=== PATIENT | male | born 1975 | race Caucasian/White ===

== ENCOUNTER 2017-02-27 16:50 | Inpatient (IN) | payer OTHER ==
[~2017-02-27] VITALS: Ht 182.9 cm; Wt 88.9 kg
--- NOTE | ~2017-02-27 | HC ---
[facility] Nataliia Nu[address]ez [place] [address] CONSULTATION Name: CHRISTINA BLAS Fabián Room #: 461-P [facility] IN M.R.#: [id number] Admission: 02/27/17 Attend Phys: Eliezer Araya DO Discharge: 03/05/17 Date of : 71 Report #: [id number] THIS REPORT FOR: //name// CC: [facility] physician/PCP Eliezer Araya PULMONARY CONSULTATION REFERRAL PHYSICIAN: Dr. Ochoa. REASON FOR REFERRAL: COPD. HISTORY OF PRESENT ILLNESS: The patient is a 41-year-old white male who presents to Emergency Room with generalized pain. He was found to have severe metabolic alkalosis. With his history of COPD, a Pulmonary consultation was requested. The patient has a history of polysubstance abuse including methamphetamines, marijuana. He informed the Emergency Room staff that he has been on hospice care for heart failure. Currently, he is sleepy. Complains of generalized aches and pains. PAST MEDICAL HISTORY: Notable for tobacco abuse, apparent history of COPD, history of ADHD, apparent history of heart failure, on (?) hospice, gout. PAST SURGICAL HISTORY: Past history of bilateral forearm fracture, jaw fracture, wrist fracture. ALLERGIES: None noted. HOME MEDICATIONS: His stated home medications are Zyloprim, metolazone, Lasix, morphine, oral solutions, MS Contin, oxycodone, Neurontin, [place], Ativan. FAMILY HISTORY: Unknown. SOCIAL HISTORY: Tobacco abuse along with polysubstance abuse including methamphetamines, marijuana, continues to smoke about a pack a day. No history of alcohol abuse. REVIEW OF SYSTEMS: As mentioned above. It is limited as the patient is quite somnolent this morning. PHYSICAL EXAMINATION: GENERAL: He is arousable, in no apparent distress. VITAL SIGNS: Temperature is 98.3 degrees Fahrenheit, pulse is 84, respiratory rate is 20, blood pressure is 135/90 mmHg, saturation is 100%. [facility] [address] [place] [address] CONSULTATION Name: CHRISTINA BLAS Fabián Room #: 461-P [facility] IN [facility].#: [id number] Admission: 02/27/17 Attend Phys: Eliezer Araya DO Discharge: 03/05/17 Date of : 71 Report #: [id number] HEENT: Normocephalic, atraumatic. NECK: Supple, without any lymphadenopathy or thyromegaly. CHEST: Breath sounds are fair due to poor effort. Otherwise, no obvious rales or wheezes. CARDIOVASCULAR: Normal S1, S2. There are no murmurs or gallop. There is no JVD. There is no carotid bruit. Pulses are 2+/4+ bilaterally. ABDOMEN: Soft, nontender, no organomegaly or masses felt. GENITOURINARY: Deferred. RECTAL: Deferred. EXTREMITIES: There is no edema, cyanosis or clubbing. LABORATORY DATA: Chest x-ray is unremarkable. Lumbosacral x-rays were unremarkable. CT head was unremarkable. Sodium 129, potassium 1.9, chloride 80, CO2 is greater than 45, BUN is 68, creatinine is 1.5. WBC 14,300; hemoglobin is 15.9 without bandemia. Albumin 3.8. Arterial blood gas on admission revealed a pH 7.7, PCO2 42, pO2 48 on room air. Followup arterial blood gas revealed a pH of 7.58, PCO2 of 56, pO2 of 200. IMPRESSION: 1. Severe metabolic alkalosis with partial respiratory compensation. 2. Profound hypokalemia, hyponatremia, renal insufficiency. Azotemia is present. Volume contraction alkalosis is suspected with his history of diuretic use. 3. Renal insufficiency, unclear whether this is acute or chronic. 4. Apparent history of heart failure. Baseline echocardiogram will be helpful. 5. Acute hypoxic respiratory failure due to above processes. 6. Polysubstance abuse including marijuana, methamphetamine. 7. Chronic obstructive pulmonary disease with ongoing tobacco use. We will continue bronchodilators. I am not certain if corticosteroid is necessary at this time. In regards to the patient's severe metabolic alkalosis, it is felt to be related to volume depletion. I recommend volume repletion and correct electrolyte abnormalities. Deep venous thrombosis and gastrointestinal prophylaxis will be addressed. Obviously, the patient would need counseling regarding polysubstance abuse. Case management involvement will be helpful. Thank you for this consultation. <ELECTRONICALLY SIGNED> By: Shaheen Mancini MD 03/06/17 1233 1350 193 Shaheen Mancini MD /nt
--- NOTE | ~2017-02-27 | HC ---
[facility] Natali[address] Nu[address] [place] [address] CONSULTATION Name: CHRISTINA BLAS Fabián Room #: 461-P [facility] IN M.R.#: [id number] Admission: 02/27/17 Attend Phys: Eliezer Araya DO Discharge: Date of : 71 Report #: [id number] THIS REPORT FOR: //name// CC: [facility] physician/PCP Eliezer Araya INDICATION: Cardiomyopathy. HISTORY OF PRESENT ILLNESS: This is a 41-year-old gentleman who was admitted to the ER complaining of generalized weakness and multiple falls. The patient reports that he fell multiple times at home, unable to stand up. He also reports having loss of consciousness. Apparently, he was on hospice for the past one year, for history of severe cardiomyopathy. He is followed by Cardiology at [facility]. The patient was found to have severe hypokalemia, contraction alkalosis and acute renal insufficiency on admission. This is most likely attributed to diuretic use. There is some confusion regarding his medications. There is prescription for furosemide 160 mg twice a day as well as metolazone 5 mg daily. However, this is different from the medication list given from his medical records from 10/2016 at [facility]. The patient denies any history of chest pains, PND, palpitations or diaphoresis. He does have class 1 to 2 heart failure symptoms. PAST MEDICAL HISTORY: As reviewed from his records from [place] include cardiac catheterization in 06/2015 revealing normal coronary arteries and severe nonischemic cardiomyopathy. ICD implanted in 2015 at [place]. History of asthma, hypertension, GERD. MEDICATIONS: Please see the MAR. His medications from [place] include nicotine patch, digoxin 0.25 mg daily, Aldactone 12.5 mg daily, potassium, Bumex 3 mg twice a day and Zaroxolyn 20.5 mg daily. ALLERGIES: None. SOCIAL HISTORY: Apparently on hospice. History of drug use including methamphetamine, THC. Smokes 1 cigarette per day. FAMILY HISTORY: Unknown. REVIEW OF SYSTEMS: Only A full 10-point review of systems performed. Only the pertinent positives and negatives are described in the HPI. PHYSICAL EXAMINATION: VITAL SIGNS: Blood pressure is 100/60, heart rate is 75 beats per minute. GENERAL APPEARANCE: This is a well-developed, well-nourished male in no acute respiratory distress. [address] [address] CONSULTATION Name: CHRISTINA BLAS Fabián Room #: 461-P [facility] IN M.R.#: [id number] Admission: 02/27/17 Attend Phys: Eliezer Araya DO Discharge: Date of : 71 Report #: [id number] HEAD AND EYES: Normocephalic. Sclerae anicteric. ENT: Oral mucosa moist. NECK: Supple. LUNGS: Clear to auscultation. CARDIOVASCULAR: Regular rate and rhythm, S1, S2 positive. ABDOMEN: Soft, nontender. EXTREMITIES: No cyanosis. Trace ankle edema. ECG on admission was sinus rhythm with ventricular bigeminy which has resolved. LABORATORY VALUES: From today, potassium is 3.5, sodium is 132, BUN is 22, creatinine is 1.0. White count is 13.9, hemoglobin is 13.2. ASSESSMENT AND PLAN: 1. Cardiomyopathy/nonischemic, the echo from [facility] confirms a diagnosis of severe cardiomyopathy. At this time, he is not in any overt heart failure. He does have class 1 to 2 heart failure symptoms. The plan is to resume his medications including the diuretic therapy. He is not on a beta laly, the patient does not recall having any issues with any medications. We will start it at a low dose. 2. Electrolyte imbalance, secondary to diuretic use. We will resume combination of Aldactone and furosemide. This will be initiated once his potassium is stabilized. 3. Weakness/falls, probably combination of his underlying cardiomyopathy and dehydration. He seems to have improved with holding is medications and was given hydration. 4. Substance abuse, counseling is recommended. Thank you for allowing me to participate in the care of your patient. <ELECTRONICALLY SIGNED> By: Amadou Reeves MD 03/03/17 0804 03 0341 Amadou Reeves MD /nt
--- NOTE | ~2017-02-27 | EKG ---
[address] [address] ELECTROCARDIOGRAM REPORT Name: CHRISTINA BLAS Room #: 461-P ADM IN M.R.#: [id number] Admission: 02/27/17 Attend Phys: Eliezer Araya DO Discharge: Date of : 71 Report #: [id number] THIS REPORT FOR: //name// [facility] ED Test Date: 2017-02-27 Test Time: 18:08:25 Pat Name: CHRISTINA BLAS Department: Room: 461 Gender: M [employer] Installer: [id number] : 1975 Requested By: Juvenal Dhillon Order Number: [id number] MD: Amadou Reeves Measurements Intervals [place] Rate: 105 P: 52 PA: 196 QRS: 3 QRSD: 120 T: 252 QT: 376 QTc: 498 Interpretive Statements Sinus tachycardia Ventricular bigeminy Left atrial enlargement Nonspecific intraventricular conduction delay No previous ECG available for comparison Electronically Signed On 03-01-2017 12:37:27 CDT by Amadou Reeves [email or web address] <ELECTRONICALLY SIGNED> By: Amadou Reeves MD 03/01/17 1237 1808 1808 Amadou Reeves MD /RAMOS
--- NOTE | ~2017-02-27 | 2DMMODE ---
[place] [address] [facility] [place] [address] 2 D/M-MODE ECHOCARDIOGRAM Name: CHRISTINA BLAS Room #: 461-P [facility] IN .R.#: [id number] Admission: 02/27/17 Attend Phys: Eliezer Araya, Discharge: Date of : 71 Date of Service: 03/01/17 1543 Report #: [id number] THIS REPORT FOR: //name// APPROVED REPORT Study performed: 03/01/2017 10:48:04 EXAM: Comprehensive 2D, Doppler, and color-flow Echocardiogram Patient Location: Bedside Room #: 461 Status: on-call BSA: 2.11 HR: 90 bpm BP: 99/67 mmHg Rhythm: NSR Other Information Study Quality: Good Risk Factors: Cardiac Risk Factors: Smoking Indications COPD Sepsis Dyspnea Chest Pain 2D Dimensions IVSd: 11.41 (7-11mm) LVOT Diam: 22.21 (18-24mm) LVDd: 71.29 mm PWd: 11.86 (7-11mm) Ascending Ao: 35.97 (22-36mm) LVDs: 66.57 (25-40mm) Aortic Root: 33.81 mm LV Single Plane 4CH: 25.96 % LV Single Plane 2CH: 29.18 % Levine's LVEF: 27.57 % Biplane EF: 24.5 % Volumes Left Atrial Volume (Systole) Single Plane 4CH: 78.90 mL Single Plane 2CH: 68.86 mL LA ESV Index: 38.00 mL/m2 Aortic Valve AoV Peak Conrado.: 1.17 m/s [facility] [address] [place] [address] 2 D/M-MODE ECHOCARDIOGRAM Name: CHRISTINA LBAS Room #: 461-P [facility] IN .R.#: [id number] Admission: 02/27/17 Attend Phys: Eliezer Araya, Discharge: Date of : 71 Date of Service: 03/01/17 1543 Report #: [id number] Peak Gr.: 5.87 mmHg LVOT Max P.66 mmHg LVOT Max V: 0.81 m/s BINDU Vmax: 2.70 cm2 Mitral Valve E/A Ratio: 2.1 MV Decel. Time: 141.44 ms MV E Max Conrado.: 1.30 m/s MV A Conrado.: 0.63 m/s MV Max Conrado.: 4.24 m/s MV Mean Conrado.: 3.32 m/s MR Radius: 1.34 cm MV PHT: 41.02 ms MR Als. Conrado: 0.34 m/s MR Flow: 384.48 mL/s IVRT: 41.52 ms Pulmonary Valve PV Peak Conrado.: 1.07 m/s PV Peak Gr.: 4.60 mmHg Pulmonary Vein P Vein S: 0.41 m/s P Vein A: 0.17 m/s P Vein D: 0.26 m/s P Vein A Dur.: 69.2 msec P Vein S/D Ratio: 1.58 Tricuspid Valve TR Peak Conrado.: 3.06 m/s TR Peak Gr.: 37.51 mmHg Left Ventricle Left ventricle is dilated. There is global hypokinesis of the left ventricle. Borderline concentric left ventricular hypertrophy. Left ventricular ejection fraction is severely decreased. LVEF is 25-30%. Right Ventricle Right ventricle is borderline dilated. Right ventricle is mildly hypokinetic. Atria Left atrium is mildly dilated. Right atrium is mildly dilated. Aortic Valve The aortic valve is normal in structure. No aortic regurgitation is present. There is no aortic valvular stenosis. [address] [address] 2 D/M-MODE ECHOCARDIOGRAM Name: ROOPACHRISTINA Fabián Room #: 461-P [facility] IN [facility]#: [id number] Admission: 02/27/17 Attend Phys: Eliezer Araya, Discharge: Date of : 71 Date of Service: 03/01/17 1543 Report #: [id number] Mitral Valve The mitral valve is normal in structure. Moderate to severe mitral regurgitation No evidence of mitral valve stenosis. Tricuspid Valve The tricuspid valve is normal in structure. Moderate to severe tricuspid regurgitation. Pulmonic Valve The pulmonary valve is normal in structure. There is no pulmonic valvular regurgitation. Great Vessels The aortic root is normal in size. IVC is not well visualized. Pericardium There is no pericardial effusion. <Conclusion> Left ventricular ejection fraction is severely decreased. LVEF is 25-30%. Global hypokinesis of the left ventricle. Left ventricle is dilated. Both atria are dilated The aortic valve is normal in structure. No aortic regurgitation or stenosis The mitral valve is normal in structure. Moderate to severe mitral regurgitation Pulmonary artery pressure of 45mmHg There is no pericardial effusion. Pacing and/or ICD wires in right heart <ELECTRONICALLY SIGNED> By: Edilberto Hodge MD, FACC 03/01/17 1543 1543 1543 Edilberto Hodge MD, FACC /INF
[~2017-02-27 16:50] MED LIST: ALLOPURINOL 10100 M1 PO; ATIVAN1 M1 PO; BACTRIM DS TAB1 EACH PO; CARVEDILOL3.125 MG PO; COLCHICINE0.6 MG PO; IBUPROFEN 800800 MG PO; LASIX 80 MG TAB80 MG; LASIX 80 MG TAB80 MG PO; LISINOPRIL2.5 M1 PO; METOLAZONE 5 MG5 MG PO; MS CONTIN15 MG PO; NEURONTIN 300300 M1 PO; NOHOMEMEDICATIONS; NORCO 5-325 TA1 EACH PO; OXYCONTIN10 M1 PO; PERCOCET 5-3251 EACH PO; POTASSIUM20 PO; PREDNISONE 10 M10 M1 PO
[2017-02-27 16:51] VITALS: BP 115/62
[2017-02-27] MEDS ORDERED: MSL20MG/ML PO (16:56)
[2017-02-27 18:38] LABS: HEMATOCRIT 46.5 % (42.0-52.0); HEMOGLOBIN 15.9 gm/dL (14.0-18.0); MCHC 34.1 g/dL (28.0-37.0); PLATELET COUNT 199 thou/uL (150-400); RBC 5.88 mil/uL (4.50-6.00); RDW 20.9 % (10.5-14.5); WBC 14.3 thou/uL (4.0-11.0)
[2017-02-27 18:41] LABS: MANUAL DIFF YES
[2017-02-27 18:55] LABS: ALBUMIN 3.8 g/dL (3.4-5.0); ALKALINE PHOSPHATASE 144 U/L (46-116); BUN 68 mg/dL (7-18); CALCIUM 10.6 mg/dL (8.5-10.1); CHLORIDE 80 mmol/L (98-107); CREATININE 1.5 mg/dL (0.7-1.3); GLUCOSE 158 mg/dL (74-106); SGOT 41 U/L (15-37); SGPT 37 U/L (30-65); SODIUM 129 mmol/L (136-145); TOTAL BILIRUBIN 1.1 mg/dL (<0.1-1.0); TOTAL PROTEIN 9.2 g/dL (6.4-8.2); TROPONIN-I 0.04 ng/mL (<0.04-0.07)
[2017-02-27 18:56] LABS: CO2 > 45 mmol/L (21-32); POTASSIUM 1.9 mmol/L (3.5-5.1)
[2017-02-27 19:21] LABS: URINE BILIRUBIN NEGATIVE (Negative); URINE BLOOD TRACE (Negative); URINE COLOR YELLOW; URINE GLUCOSE-RANDOM* NEGATIVE (Negative); URINE KETONES NEGATIVE (Negative); URINE LEUKOCYTES-REFLEX NEGATIVE (Negative); URINE PROTEIN (DIPSTICK) NEGATIVE (Negative); URINE SPECIFIC GRAVITY <= 1.005 (1.003-1.035); URINE UROBILINOGEN 0.2 E.U./dl (0.2-1.0)
[2017-02-27 19:26] LABS: AMP/METHAMP POSITIVE (Negative); BARBITURATES Negative (Negative); BENZODIAZEPINES Negative (Negative); COCAINE Negative (Negative); METHADONE Negative (Negative); OPIATES POSITIVE (Negative); PCP Negative (Negative); THC POSITIVE (Negative)
[2017-02-27 19:31] LABS: ABG SAMPLE TYPE ARTERIAL; BE(vivo) 27.6 mmol/L (-2 to +3); HCO3 51.3 mmol/L (22.0-26.0); LACTATE 3.14 mmol/L (0.5-2.0); O2(CT) 20.5 mL/dL (15.0-23.0); O2Hb 88.1 % (92.0-98.0); PCO2 42.4 mmHg (35.0-45.0); sO2 91.9 % (92.0-98.0); tCO2 52.6 mmol/L (24.0-30.0)
[2017-02-27 19:32] LABS: PO2 48.6 mmHg (80.0-100.0); STICK SITE R.BRACHIAL; pH 7.701 (7.360-7.450)
[2017-02-27 19:32] LABS: ABSOLUTE NEUTROPHILS 11.6 thou/uL (1.4-8.2); ANISOCYTOSIS 1+; PLATELET ESTIMATE NORMAL; TOTAL CELL COUNT 100
[2017-02-27 21:10] VITALS: BP 117/82
[2017-02-27 21:50] VITALS: BP 115/80
[2017-02-27 23:36] LABS: ABG SAMPLE TYPE ARTERIAL; BE(vivo) 25.6 mmol/L (-2 to +3); LACTATE 2.05 mmol/L (0.5-2.0); O2(CT) 21.9 mL/dL (15.0-23.0); PCO2 56.1 mmHg (35.0-45.0); PO2 200.1 mmHg (80.0-100.0); pH 7.585 (7.360-7.450); sO2 99.5 % (92.0-98.0); tCO2 53.7 mmol/L (24.0-30.0)
[2017-02-27 23:37] LABS: STICK SITE R.RADIAL
[2017-02-28 00:34] VITALS: BP 116/79
[2017-02-28 04:07] VITALS: BP 108/79
[2017-02-28 06:08] LABS: HEMATOCRIT 44.1 % (42.0-52.0); HEMOGLOBIN 14.8 gm/dL (14.0-18.0); MCHC 33.5 g/dL (28.0-37.0); MCV 80.6 fL (80.0-100.0); RBC 5.47 mil/uL (4.50-6.00); RDW 20.8 % (10.5-14.5); WBC 9.9 thou/uL (4.0-11.0)
[2017-02-28 06:55] LABS: BUN 58 mg/dL (7-18); CHLORIDE 83 mmol/L (98-107); CREATININE 1.5 mg/dL (0.7-1.3); GLUCOSE 219 mg/dL (74-106); MAGNESIUM 2.3 mg/dL (1.8-2.4); SODIUM 132 mmol/L (136-145)
[2017-02-28 06:57] LABS: CO2 > 45 mmol/L (21-32); POTASSIUM 2.1 mmol/L (3.5-5.1)
[2017-02-28 07:27] VITALS: BP 135/90
[2017-02-28 09:05] LABS: ABG SAMPLE TYPE ARTERIAL; BE(vivo) 22.9 mmol/L (-2 to +3); HCO3 47.3 mmol/L (22.0-26.0); LACTATE 2.15 mmol/L (0.5-2.0); O2(CT) 20.9 mL/dL (15.0-23.0); O2Hb 97.6 % (92.0-98.0); PCO2 47.1 mmHg (35.0-45.0); PO2 124.7 mmHg (80.0-100.0); STICK SITE R.BRACHIAL; sO2 98.9 % (92.0-98.0); tCO2 48.8 mmol/L (24.0-30.0)
[2017-02-28 16:36] VITALS: BP 112/70
[2017-02-28 19:16] VITALS: BP 107/77
[2017-03-01 03:39] VITALS: BP 107/66
[2017-03-01 03:56] LABS: CALCIUM 9.2 mg/dL (8.5-10.1)
[2017-03-01 03:59] LABS: POTASSIUM 2.7 mmol/L (3.5-5.1)
[2017-03-01 08:46] VITALS: BP 99/67
[2017-03-01 12:55] VITALS: BP 102/72
[2017-03-01 15:57] VITALS: BP 110/74
[2017-03-01 16:02] LABS: URIC ACID* 9.2 mg/dL (2.6-7.2)
[2017-03-01 17:32] LABS: CLARITY CLOUDY; COLOR RED; TOTAL VOLUME 50 mL
[2017-03-01 18:00] LABS: BF NUCLEATED CELLS 14025; BF RBC 17316
[2017-03-01 18:04] LABS: BF CRYSTALS No Crystals seen; MANUAL DIFF YES
[2017-03-01 18:44] LABS: BF MACROPHAGE 5; BF NEUTROPHILS 95
[2017-03-01 20:30] VITALS: BP 105/73
[2017-03-02 05:06] VITALS: BP 101/63
[2017-03-02 05:29] LABS: ABG SAMPLE TYPE ARTERIAL; BE(vivo) 8.9 mmol/L (-2 to +3); HCO3 32.6 mmol/L (22.0-26.0); LACTATE 1.61 mmol/L (0.5-2.0); O2(CT) 18.3 mL/dL (15.0-23.0); PCO2 40.9 mmHg (35.0-45.0); pH 7.519 (7.360-7.450); tCO2 33.8 mmol/L (24.0-30.0)
[2017-03-02 05:30] LABS: STICK SITE R.RADIAL
[2017-03-02 06:28] LABS: HEMATOCRIT 39.1 % (42.0-52.0); HEMOGLOBIN 13.2 gm/dL (14.0-18.0); MCH 27.3 pg (26.0-34.0); MCHC 33.8 g/dL (28.0-37.0); MCV 80.9 fL (80.0-100.0); PLATELET COUNT 181 thou/uL (150-400); RBC 4.83 mil/uL (4.50-6.00); RDW 20.8 % (10.5-14.5); WBC 13.9 thou/uL (4.0-11.0)
[2017-03-02 06:35] LABS: MANUAL DIFF YES
[2017-03-02 06:44] LABS: ALBUMIN 2.9 g/dL (3.4-5.0); CALCIUM 9.2 mg/dL (8.5-10.1); POTASSIUM 3.4 mmol/L (3.5-5.1); TOTAL BILIRUBIN 0.5 mg/dL (<0.1-1.0); TOTAL PROTEIN 7.8 g/dL (6.4-8.2)
[2017-03-02 07:16] VITALS: BP 104/66
[2017-03-02 08:21] LABS: ATYPICAL LYMPHS 1 %; TOTAL CELL COUNT 100
[2017-03-02 08:22] LABS: ANISOCYTOSIS 2+; HYPOCHROMASIA SLIGHT
[2017-03-02 11:46] VITALS: BP 102/70
[2017-03-02 15:57] VITALS: BP 106/74
[2017-03-02 20:05] VITALS: BP 97/66
[2017-03-03 05:13] VITALS: BP 79/45
[2017-03-03 05:49] LABS: ABSOLUTE NEUTROPHILS 9.2 thou/uL (1.4-8.2); BASOPHILS 0.7 % (0.0-2.0); EOSINOPHILS 2.3 % (0.0-3.0); HEMATOCRIT 36.1 % (42.0-52.0); HEMOGLOBIN 12.1 gm/dL (14.0-18.0); LYMPHOCYTES 10.4 % (24.0-44.0); MCH 27.2 pg (26.0-34.0); MCHC 33.5 g/dL (28.0-37.0); MCV 81.2 fL (80.0-100.0); PLATELET COUNT 171 thou/uL (150-400); POLYS 76.6 % (36.0-66.0); RBC 4.45 mil/uL (4.50-6.00); RDW 20.4 % (10.5-14.5); WBC 12.1 thou/uL (4.0-11.0)
[2017-03-03 05:52] LABS: MANUAL DIFF NO
[2017-03-03 06:03] LABS: CALCIUM 8.7 mg/dL (8.5-10.1); CREATININE 0.9 mg/dL (0.7-1.3)
[2017-03-03 06:19] LABS: POTASSIUM 2.6 mmol/L (3.5-5.1)
[2017-03-03 07:31] VITALS: BP 96/66
[2017-03-03 12:00] VITALS: BP 99/73
[2017-03-03 16:00] VITALS: BP 94/64
[2017-03-03 19:11] VITALS: BP 101/67
[2017-03-04 04:12] VITALS: BP 89/56
[2017-03-04 07:51] LABS: HEMOGLOBIN 12.3 gm/dL (14.0-18.0); MCH 27.2 pg (26.0-34.0); MCHC 33.3 g/dL (28.0-37.0); MCV 81.7 fL (80.0-100.0); RBC 4.53 mil/uL (4.50-6.00); RDW 20.1 % (10.5-14.5); WBC 12.6 thou/uL (4.0-11.0)
[2017-03-04 07:59] LABS: CALCIUM 9.2 mg/dL (8.5-10.1); CREATININE 0.8 mg/dL (0.7-1.3); POTASSIUM 3.4 mmol/L (3.5-5.1)
[2017-03-04 08:00] VITALS: BP 103/71
[2017-03-04 12:00] VITALS: BP 83/53
[2017-03-04 16:00] VITALS: BP 110/72
[2017-03-04 18:49] VITALS: BP 117/78
[2017-03-05 04:12] VITALS: BP 97/53
[2017-03-05 06:15] LABS: CALCIUM 8.8 mg/dL (8.5-10.1); CREATININE 0.9 mg/dL (0.7-1.3); POTASSIUM 3.6 mmol/L (3.5-5.1)
[2017-03-05 08:32] VITALS: BP 91/56
[2017-03-05] MEDS ORDERED: LANOXIN 0.250.25 M1 PO (12:02)
[2017-03-05] MEDS ORDERED: PREDNISONE 10 M10 MG PO (12:02)
[2017-03-05] MEDS ORDERED: COZAAR 25 MG TA25 M1 PO (12:02)
[2017-03-05] MEDS ORDERED: PROTONIX40 M1 PO (12:02)
[2017-03-05] MEDS ORDERED: CARVEDILOL3.125 MG PO (12:02)
[2017-03-05] MEDS ORDERED: SPIRONOLACTONE25 M1 PO (12:02)
[2017-03-05 12:42] VITALS: BP 91/56
== END 2017-03-05 12:59 | disposition hospice, home (50) | DRG 553 ==
LOC: ER 16:50 → EROBS 20:10 → 4W 20:10
PROVIDERS: Hospitalist; Internal Medicine Cardiovascular Disease; Internal Medicine Endocrinology, Diabetes & Metabolism; Internal Medicine Geriatric Medicine; Internal Medicine Pulmonary Disease; Nurse Practitioner Acute Care; Physician Assistant
PROC: 0S9C3ZZ Drainage of Right Knee Joint, Percutaneous Approach (ICD-10-PCS; principal; 2017-03-01)
DX: M10.061 Idiopathic gout, right knee (principal); J96.01 Acute respiratory failure with hypoxia; N17.9 Acute kidney failure, unspecified; E87.3 Alkalosis; E87.1 Hypo-osmolality and hyponatremia; I42.9 Cardiomyopathy, unspecified; I50.22 Chronic systolic (congestive) heart failure; I95.9 Hypotension, unspecified; G89.29 Other chronic pain; F90.9 Attention-deficit hyperactivity disorder, unspecified type; J44.9 Chronic obstructive pulmonary disease, unspecified; F17.210 Nicotine dependence, cigarettes, uncomplicated; E87.6 Hypokalemia; F15.10 Other stimulant abuse, uncomplicated; E87.8 Other disorders of electrolyte and fluid balance, not elsewhere classified; M25.461 Effusion, right knee; Z79.899 Other long term (current) drug therapy; Z87.81 Personal history of (healed) traumatic fracture; Z95.810 Presence of automatic (implantable) cardiac defibrillator; Y93.89 Activity, other specified; Y92.89 Other specified places as the place of occurrence of the external cause; Y99.8 Other external cause status; W18.39XA Other fall on same level, initial encounter
CPT/HCPCS: 10045